=== PATIENT | male | born 1980 | race Caucasian/White ===

== ENCOUNTER 2018-07-26 15:25 | Inpatient (IN) | payer OTHER ==
[2018-07-26 15:48] VITALS: BMI 23.6
--- NOTE | 2018-07-26 21:32 | HP ---
COWS - Scale Resting Pulse: 0= [place] 80 or Below Sweatin= Chills/Flushing Restless Observation: 1= Difficult to Sit Still Pupil Size: 0= Normal to Room Light Bone or Joint Aches: 1= Mild Discomfort Runny Nose/ Eye Tearin= Nasal Congestion GI Upset > 30mins: 2= Nausea/Diarrhea Tremor Observation: 1= Tremor [place], Not Seen Yawning Observation: 1= 1-2x During Session Anxiety or Irritability: 2=Irritable/Anxious Goose Flesh Skin: 3=Piloerection COWS Score: 13 CIWA Score - CIWA Score Nausea/Vomitin Muscle Tremors: 1-None Visible, but [place] Anxiety: 2 Agitation: 3 Paroxysmal Sweats: 2 Orientation: 0-Oriented Tacttile Disturbances: 2-Mild Itch/Numbness/Burn (both hands) Auditory Disturbances: 1-Very Mild Visual Disturbances: 0-None Headache: 0-None Present CIWA-Ar Total Score: 14 Admission ROS BHS - HPI Chief Complaint: opioid and alcohol withdrawal symptoms Allergies/Adverse Reactions: Allergies Allergy/AdvReac Type Severity Reaction Status Date / Time No Known Allergies Allergy Verified 07/26/18 17:53 History of Present Illness: 38 yo male with hx of alcohol, IV heroin, alcohol, marijuana and cocaine dependence is here seeking detox. Last detox five months ago at [facility]. Denies suicidal / homicidal ideation or hx of suicide attempt. Denies any hx of seizures, blackouts or overdose. Longest period of sobriety 1.5 years. Exam Limitations: No Limitations - Ebola screening Have you traveled outside of the country in the last 21 days: No (N) Have you had contact with anyone from an Ebola affected area: No Have you been sick,other than usual withdrawal symptoms: No Do you have a fever: No - Review of Systems Constitutional: Chills, Changes in sleep, Unintentional Wgt. Loss EENT: reports: No Symptoms Reported Respiratory: reports: No Symptoms reported Cardiac: reports: No Symptoms Reported GI: reports: Nausea, Poor Fluid Intake, Abdominal cramping : reports: No Symptoms Reported Musculoskeletal: reports: Back Pain, Joint Pain Integumentary: reports: No Symptoms Reported Neuro: reports: No Symptoms reported Endocrine: reports: No Symptoms Reported Hematology: reports: No Symptoms Reported Psychiatric: reports: Orientated x3, Depressed Other Systems: Reviewed and Negative Patient History - Patient Medical History Hx Anemia: No Hx Asthma: No Hx Chronic Obstructive Pulmonary Disease (COPD): No Hx Cancer: No Hx Cardiac Disorders: No Hx Congestive Heart Failure: No Hx Hypertension: No Hx Hypercholesterolemia: No Hx Pacemaker: No HX Cerebrovascular Accident: No Hx Seizures: No Hx Dementia: No Hx Diabetes: No Hx Gastrointestinal Disorders: No Hx Liver Disease: No Hx Genitourinary Disorders: No Hx Sexually Transmitted Disorders: Yes (hx of syphillis ) Hx Renal Disease (ESRD): No Hx Thyroid Disease: No Hx Human Immunodeficiency Virus (HIV): No (last tested four months ago ) Hx Hepatitis C: No Hx Depression: Yes Hx Suicide Attempt: No Hx Schizophrenia: No - Patient Surgical History Past Surgical History: No Hx Neurologic Surgery: No Hx Cataract Extraction: No Hx Cardiac Surgery: No Hx Lung Surgery: No Hx Breast Surgery: No Hx Breast Biopsy: No Hx Abdominal Surgery: No Hx Appendectomy: No Hx Cholecystectomy: No Hx Genitourinary Surgery: No Hx Section: No Hx Orthopedic Surgery: No Anesthesia Reaction: No - PPD History Previous Implant?: Yes Documented Results: Negative w/o proof Implanted On Prior [facility] Admission?: No PPD to be Administered?: Yes - Smoking Cessation Smoking history: Current every day smoker Have you smoked in the past 12 months: Yes Aproximately how many cigarettes per day: 10 Hx Chewing Tobacco Use: No Initiated information on smoking cessation: Yes 'Breaking Loose' booklet given: 07/26/18 - Substance & Tx. History Hx Alcohol Use: Yes Hx Substance Use: Yes Substance Use Type: Alcohol, Cocaine, Heroin, Marijuana Hx Substance Use Treatment: Yes ([facility] five months ago ) - Substances Abused Alcohol Route: Oral Frequency: Daily Amount used: liqour- 1 pint, beer- 1 six pack Age of first use: 15 Date of Last Use: 07/25/18 Heroin Route: Injection Frequency: Daily Amount used: 15 bags Age of first use: 21 Date of Last Use: 07/25/18 Cocaine Route: Injection Frequency: Daily Amount used: $40 worth Age of first use: 21 Date of Last Use: 07/25/18 Marijuana/Hashish Route: Smoking Frequency: Daily Amount used: 1 blunt Age of first use: 12 Date of Last Use: 07/26/18 Family Disease History - Family Disease History Family Disease History: Other: Father (alive, cocaine dependence ) Admission Physical Exam [facility] - Vital Signs Vital Signs: Vital Signs - 24 hr 07/26/18 15:44 Temperature 96.7 F L Pulse Rate 61 Respiratory 18 Rate Blood Pressure 112/61 - Physical General Appearance: Yes: Disheveled, Irritable, Anxious HEENTM: Yes: EOMI, Hearing grossly Normal, Normal ENT Inspection, Normocephalic , Normal Voice, WHIT, Pharynx Normal, Tm's normal Respiratory: Yes: Chest Non-Tender, Lungs Clear, Normal Breath Sounds, No Respiratory Distress, No Accessory Muscle Use Neck: Yes: Within Normal Limits Breast: Yes: Breast Exam Deferred Cardiology: Yes: Regular Rhythm, Regular Rate Abdominal: Yes: Normal Bowel Sounds, Non Tender, Flat, Soft Genitourinary: Yes: Within Normal Limits Back: Yes: Normal Inspection Extremities: Yes: Normal Capillary Refill, Normal Inspection, Normal Range of Motion, Non-Tender Neurological: Yes: doctor of osteopathy II-XII NML intact, Fully Oriented, Alert, Motor Strength 5/5, Normal Response, Depressed Affect Integumentary: Yes: Track Aguila (bilateral forearms, no infection) Lymphatic: Yes: Within Normal Limits - Diagnostic (1) Alcohol dependence with withdrawal Current Visit: Yes Status: Acute Qualifiers: Complication of substance-induced condition: uncomplicated Qualified Code(s ): F10.230 - Alcohol dependence with withdrawal, uncomplicated (2) Opioid dependence with withdrawal Current Visit: Yes Status: Acute (3) Cocaine dependence Current Visit: Yes Status: Acute Qualifiers: Substance use status: uncomplicated Qualified Code(s): F14.20 - Cocaine dependence, uncomplicated (4) IV drug user Current Visit: Yes Status: Acute Cleared for Admission [facility] - Detox or Rehab [facility] Level of Care: Medically Managed Detox Regimen/Protocol: Methadone/Librium [facility] Breath Alcohol Content Breath Alcohol Content: 0 Urine Drug Screen - Results Drug Screen Negative: No Urine Drug Screen Results: THC-Marijuana, JUSTINE-Cocaine, OPI-Opiates, OXY- Oxycodone
[2018-07-26] MEDS ORDERED: MENTHOL/PHENOL 1 EACH UD MM PRN (21:38)
[2018-07-26] MEDS ORDERED: IBUPROFEN 400 MG TABLET (FP) PO PRN (21:38)
[2018-07-26] MEDS ORDERED: chlordiazePOXIDE HCL 25 MG CAPSULE PO PRN (21:38)
[2018-07-26] MEDS ORDERED: guaiFENesin/D-METHORPHAN HB 10 ML UNIT-DOSE CUPS PO PRN (21:38)
[2018-07-26] MEDS ORDERED: MAGNESIUM HYDROX 2400MG/30ML ORAL SUSPENSION 30 ML CUP PO PRN (21:38)
[2018-07-26] MEDS ORDERED: MAG HYDROX/AL HYDROX/SIMETH 30 ML UNIT-DOSE CUP PO PRN (21:38)
[2018-07-26] MEDS ORDERED: MAGNESIUM CITRATE 300 ML BOTTLE PO PRN (21:38)
[2018-07-26] MEDS ORDERED: ACETAMINOPHEN 325 MG TABLET (FP) PO PRN (21:38)
[2018-07-26] MEDS ORDERED: METHADONE HCL 10 MG TABLET (FOR DETOX USE ONLY) PO ONE ×2 (21:38→23:00)
[2018-07-26] MEDS ORDERED: P-EPHED 60MG/TRIPROLIDI 2.5MG TABLET PO PRN (21:38)
[2018-07-26] MEDS ORDERED: LOPERAMIDE HCL 2 MG CAPSULE PO PRN (21:38)
[2018-07-26] MEDS: chlordiazePOXIDE HCL 25 MG CAPSULE PO SCH (22:56)
[2018-07-26] MEDS: THIAMINE HCL 100 MG TABLET (FP) PO SCH (22:58)
[2018-07-27 02:00] LABS: URINE APPEARANCE CLEAR; URINE BILIRUBIN NEGATIVE (<2.0 mg/dL); URINE COLOR AMBER; URINE GLUCOSE (UA) NEGATIVE (NEGATIVE); URINE KETONE NEGATIVE (NEGATIVE); URINE LEUK ESTERASE NEGATIVE (NEGATIVE); URINE NITRITE NEGATIVE (NEGATIVE); URINE PROTEIN NEGATIVE (NEGATIVE)
[2018-07-27] MEDS: chlordiazePOXIDE HCL 25 MG CAPSULE PO SCH ×4 (06:22→22:25)
--- NOTE | 2018-07-27 09:49 | EKG ---
Test Reason : Blood Pressure : / mmHG Vent. Rate : 049 BPM Atrial Rate : 049 BPM P-R Int : 136 ms QRS Dur : 080 ms QT Int : 434 ms P-R-T Axes : -03 075 053 degrees QTc Int : 392 ms SINUS BRADYCARDIA SEPTAL INFARCT , AGE UNDETERMINED ABNORMAL ECG NO PREVIOUS ECGS AVAILABLE Confirmed by Akbar Green MD ([id number]) on 07/27/2018 9:49:15 AM Referred By: Confirmed By:Akbar Green MD
[2018-07-27] MEDS ORDERED: METHADONE HCL 10 MG TABLET (FOR DETOX USE ONLY) PO SCH (10:00)
--- NOTE | 2018-07-27 10:27 | PN ---
[facility] CIWA - CIWA Score Nausea/Vomitin Muscle Tremors: 3 Anxiety: 3 Agitation: 2 Paroxysmal Sweats: 1-Minimal Palms Moist Orientation: 0-Oriented Tacttile Disturbances: 1-Very Mild Itch/Numbness Auditory Disturbances: 1-Very Mild Visual Disturbances: 0-None Headache: 2-Mild CIWA-Ar Total Score: 16 BHS COWS - Scale Resting Pulse: 0= [place] 80 or Below Sweatin= Chills/Flushing Restless Observation: 3= Extraneous Movement Pupil Size: 1= Pupils >than Normal Bone or Joint Aches: 2= Severe Diffuse Aches Runny Nose/ Eye Tearin= Runny Nose/Eyes GI Upset > 30mins: 2= Nausea/Diarrhea Tremor Observation of Outstretched Hands: 2= Slight Tremor Visible Yawning Observation: 1= 1-2x During Session Anxiety or Irritability: 2=Irritable/Anxious Goose Flesh Skin: 0=Smooth Skin COWS Score: 16 [facility] Progress Note (SOAP) Subjective: alert,irritable,anxious,interrupted sleep,tremor,pain in the body and back Objective: 07/27/18 10:24 Vital Signs Temperature 97.9 F 07/27/18 09:13 Pulse Rate 54 L 07/27/18 09:13 Respiratory Rate 16 07/27/18 09:13 Blood Pressure 133/61 07/27/18 09:13 O2 Sat by Pulse Oximetry (%) ekg sinus bradycardia 49/min inverted t in avr qt/[id number]/392 no chest pain,no sob,no dizziness Laboratory Last Values Urine Color Janet 07/26/18 23:00 Urine Appearance Clear 07/26/18 23:00 Urine pH 5.0 (5.0-8.0) 07/26/18 23:00 Ur Specific [place] 1.030 (1.001-1.035) 07/26/18 23:00 Urine Protein Negative (NEGATIVE) 07/26/18 23:00 Urine Glucose (UA) Negative (NEGATIVE) 07/26/18 23:00 Urine Ketones Negative (NEGATIVE) 07/26/18 23:00 Urine Blood Negative (NEGATIVE) 07/26/18 23:00 Urine Nitrite Negative (NEGATIVE) 07/26/18 23:00 Urine Bilirubin Negative (<2.0 mg/dL) 07/26/18 23:00 Urine Urobilinogen 2.0 mg/dL (0.2-1.0) 07/26/18 23:00 Ur Leukocyte Esterase Negative (NEGATIVE) 07/26/18 23:00 labs pending Assessment: 07/27/18 10:26 withdrawal symptom Plan: continue detox
[2018-07-27 10:35] LABS: HEMATOCRIT 42.1 % (35.4-49); HEMOGLOBIN 13.8 GM/dL (11.7-16.9); MCH 29.9 pg (25.7-33.7); MCHC 32.8 g/dl (32.0-35.9); MEAN CELL VOLUME 91.2 fl (80-96); MEAN PLT VOLUME 8.3 fl (7.5-11.1); PLATELET COUNT 229 K/MM3 (134-434); RBC 4.61 M/mm3 (4.00-5.60); RDW 13.6 % (11.9-15.9); WHITE BLOOD COUNT 6.4 K/mm3 (4.0-10.0)
[2018-07-27] MEDS: NICOTINE 14 MG/24 HOURS TOPICAL PATCH TD SCH (10:55)
[2018-07-27 10:56] LABS: CHLORIDE 107 mmol/L (98-107); POTASSIUM 4.5 mmol/L (3.5-5.1); SODIUM 144 mmol/L (136-145)
[2018-07-27] MEDS: PRENATAL VITAMINS W/ FOLIC ACID TABLET (FP) PO SCH (10:56)
[2018-07-27 11:12] LABS: ALBUMIN 3.2 g/dl (3.4-5.0); ALK PHOS 66 U/L (45-117); ANION GAP 8 MMOL/L (8-16); BILIRUBIN,TOTAL 0.2 mg/dL (0.2-1.0); BLOOD UREA NITROGEN 20 mg/dL (7-18); CALCIUM 8.8 mg/dL (8.5-10.1); CO2 29 mmol/L (21-32); CREATININE 0.8 mg/dL (0.7-1.3); GLUCOSE,RANDOM 94 mg/dL (74-106); SGOT/AST 26 U/L (15-37); SGPT/ALT 32 U/L (12-78); TOT PROT 6.5 g/dl (6.4-8.2)
[2018-07-27] MEDS: cloNIDine HCL 0.1 MG TABLET PO SCH ×2 (14:25→22:26)
--- NOTE | 2018-07-27 18:05 | CONSULT ---
[facility] Psychiatric Consult - Data Date of interview: 07/27/18 Identifying data: Production Stage Manager approached patient for psychiatric consultation. Pt refused. Pt. stated to writer editor, " I don't want to speak to you. I just spoke to someone else."
[2018-07-27] MEDS: THIAMINE HCL 100 MG TABLET (FP) PO SCH (22:26)
[2018-07-27] MEDS: MELATONIN 5 MG TABLETS PO PRN (22:26)
[2018-07-28] MEDS: chlordiazePOXIDE HCL 25 MG CAPSULE PO SCH ×3 (06:30→17:53)
[2018-07-28] MEDS: METHADONE HCL 5 MG TABLET (FOR DETOX USE ONLY) PO SCH (10:17)
[2018-07-28] MEDS: NICOTINE 14 MG/24 HOURS TOPICAL PATCH TD SCH (10:17)
[2018-07-28] MEDS: PRENATAL VITAMINS W/ FOLIC ACID TABLET (FP) PO SCH (10:18)
[2018-07-28] MEDS: cloNIDine HCL 0.1 MG TABLET PO SCH ×2 (10:18→22:11)
--- NOTE | 2018-07-28 10:57 | PN ---
S CIWA - CIWA Score Nausea/Vomitin Muscle Tremors: 3 Anxiety: 3 Agitation: 2 Paroxysmal Sweats: 1-Minimal Palms Moist Orientation: 0-Oriented Tacttile Disturbances: 1-Very Mild Itch/Numbness Auditory Disturbances: 1-Very Mild Visual Disturbances: 0-None Headache: 2-Mild CIWA-Ar Total Score: 16 [facility] COWS - Scale Resting Pulse: 0= [place] 80 or Below Sweatin= Chills/Flushing Restless Observation: 3= Extraneous Movement Pupil Size: 1= Pupils >than Normal Bone or Joint Aches: 2= Severe Diffuse Aches Runny Nose/ Eye Tearin= Nasal Congestion GI Upset > 30mins: 2= Nausea/Diarrhea Tremor Observation of Outstretched Hands: 2= Slight Tremor Visible Yawning Observation: 1= 1-2x During Session Anxiety or Irritability: 2=Irritable/Anxious Goose Flesh Skin: 0=Smooth Skin COWS Score: 15 BHS Progress Note (SOAP) Subjective: alert,irritable,anxious,interrupted sleep,tremor,pain in the body and back Objective: 07/28/18 10:54 Vital Signs Temperature 98.1 F 07/28/18 09:05 Pulse Rate 64 07/28/18 09:05 Respiratory Rate 18 07/28/18 09:05 Blood Pressure 117/51 07/28/18 09:05 O2 Sat by Pulse Oximetry (%) 07/28/18 10:55 Laboratory Last Values WBC 6.4 K/mm3 (4.0-10.0) 07/27/18 07:00 RBC 4.61 M/mm3 (4.00-5.60) 07/27/18 07:00 Hgb 13.8 GM/dL (11.7-16.9) 07/27/18 07:00 Hct 42.1 % (35.4-49) 07/27/18 07:00 MCV 91.2 fl (80-96) 07/27/18 07:00 MCH 29.9 pg (25.7-33.7) 07/27/18 07:00 MCHC 32.8 g/dl (32.0-35.9) 07/27/18 07:00 RDW 13.6 % (11.9-15.9) 07/27/18 07:00 Plt Count 229 K/MM3 (134-434) 07/27/18 07:00 MPV 8.3 fl (7.5-11.1) 07/27/18 07:00 Sodium 144 mmol/L (136-145) 07/27/18 07:00 Potassium 4.5 mmol/L (3.5-5.1) 07/27/18 07:00 Chloride 107 mmol/L (98-107) 07/27/18 07:00 Carbon Dioxide 29 mmol/L (21-32) 07/27/18 07:00 Anion Gap 8 MMOL/L (8-16) 07/27/18 07:00 BUN 20 mg/dL (7-18) H 07/27/18 07:00 Creatinine 0.8 mg/dL (0.7-1.3) 07/27/18 07:00 Creat Clearance w eGFR > 60 (>60) 07/27/18 07:00 Random Glucose 94 mg/dL (74-106) 07/27/18 07:00 Calcium 8.8 mg/dL (8.5-10.1) 07/27/18 07:00 Total Bilirubin 0.2 mg/dL (0.2-1.0) 07/27/18 07:00 AST 26 U/L (15-37) 07/27/18 07:00 ALT 32 U/L (12-78) 07/27/18 07:00 Alkaline Phosphatase 66 U/L (45-117) 07/27/18 07:00 Total Protein 6.5 g/dl (6.4-8.2) 07/27/18 07:00 Albumin 3.2 g/dl (3.4-5.0) L 07/27/18 07:00 Urine Color Janet 07/26/18 23:00 Urine Appearance Clear 07/26/18 23:00 Urine pH 5.0 (5.0-8.0) 07/26/18 23:00 Ur Specific [place] 1.030 (1.001-1.035) 07/26/18 23:00 Urine Protein Negative (NEGATIVE) 07/26/18 23:00 Urine Glucose (UA) Negative (NEGATIVE) 07/26/18 23:00 Urine Ketones Negative (NEGATIVE) 07/26/18 23:00 Urine Blood Negative (NEGATIVE) 07/26/18 23:00 Urine Nitrite Negative (NEGATIVE) 07/26/18 23:00 Urine Bilirubin Negative (<2.0 mg/dL) 07/26/18 23:00 Urine Urobilinogen 2.0 mg/dL (0.2-1.0) 07/26/18 23:00 Ur Leukocyte Esterase Negative (NEGATIVE) 07/26/18 23:00 HIV 1&2 Antibody Screen Negative 07/27/18 07:00 HIV P24 Antigen Negative 07/27/18 07:00 Assessment: 07/28/18 10:56 withdrawal symptom Plan: continue detox,encourage oral fluid
[2018-07-28] MEDS: chlordiazePOXIDE 5 MG CAPSULE PO SCH (22:11)
[2018-07-28] MEDS: CYCLOBENZAPRINE HCL 10 MG TABLET (FP) PO PRN (22:11)
[2018-07-28] MEDS: THIAMINE HCL 100 MG TABLET (FP) PO SCH (22:11)
[2018-07-29] MEDS: chlordiazePOXIDE 5 MG CAPSULE PO SCH ×3 (06:14→17:43)
[2018-07-29] MEDS: METHADONE HCL 5 MG TABLET (FOR DETOX USE ONLY) PO SCH (11:31)
[2018-07-29] MEDS: PRENATAL VITAMINS W/ FOLIC ACID TABLET (FP) PO SCH (11:31)
[2018-07-29] MEDS: cloNIDine HCL 0.1 MG TABLET PO SCH ×2 (11:32→23:00)
[2018-07-29] MEDS: NICOTINE POLACRILEX 2 MG GUM BC PRN ×2 (11:33→17:46)
[2018-07-29] MEDS: NICOTINE 14 MG/24 HOURS TOPICAL PATCH TD SCH (11:33)
--- NOTE | 2018-07-29 14:01 | PN ---
BHS Progress Note (SOAP) Subjective: alert,irritable,anxious,interrupted sleep,pain in the body Objective: 07/29/18 14:00 Vital Signs Temperature 97.3 F L 07/29/18 13:23 Pulse Rate 58 L 07/29/18 13:23 Respiratory Rate 18 07/29/18 13:23 Blood Pressure 110/58 07/29/18 13:23 O2 Sat by Pulse Oximetry (%) Assessment: 07/29/18 14:00 withdrawal symptom Plan: continue detox
[2018-07-29] MEDS: chlordiazePOXIDE HCL 10 MG CAPSULE PO SCH (23:00)
[2018-07-29] MEDS: THIAMINE HCL 100 MG TABLET (FP) PO SCH (23:00)
[2018-07-29] MEDS: MELATONIN 5 MG TABLETS PO PRN (23:01)
[2018-07-30] MEDS: chlordiazePOXIDE HCL 10 MG CAPSULE PO SCH ×3 (05:58→17:32)
[2018-07-30] MEDS ORDERED: METHADONE HCL 10 MG TABLET (FOR DETOX USE ONLY) PO SCH (10:00)
[2018-07-30] MEDS: NICOTINE 14 MG/24 HOURS TOPICAL PATCH TD SCH (10:42)
[2018-07-30] MEDS: cloNIDine HCL 0.1 MG TABLET PO SCH ×2 (10:42→22:04)
[2018-07-30] MEDS: PRENATAL VITAMINS W/ FOLIC ACID TABLET (FP) PO SCH (10:42)
--- NOTE | 2018-07-30 12:30 | PN ---
S Progress Note (SOAP) Subjective: alert,irritable,anxious,interrupted sleep Objective: 07/30/18 12:29 Vital Signs Temperature 97.5 F L 07/30/18 11:27 Pulse Rate 65 07/30/18 11:27 Respiratory Rate 18 07/30/18 11:27 Blood Pressure 130/61 07/30/18 11:27 O2 Sat by Pulse Oximetry (%) Assessment: 07/30/18 12:29 withdrawal symptom Plan: continue detox,discharge in am
[2018-07-30] MEDS: NICOTINE POLACRILEX 2 MG GUM BC PRN ×2 (17:34→22:06)
[2018-07-30] MEDS: THIAMINE HCL 100 MG TABLET (FP) PO SCH (22:04)
[2018-07-30] MEDS: MELATONIN 5 MG TABLETS PO PRN (22:05)
[2018-07-31] MEDS ORDERED: METHADONE HCL 5 MG TABLET (FOR DETOX USE ONLY) PO SCH (06:00)
[2018-07-31] MEDS: CYCLOBENZAPRINE HCL 10 MG TABLET (FP) PO PRN (07:11)
[2018-07-31 09:21] VITALS: BP 122/61; PULSE 63; TEMP 98.1
--- NOTE | 2018-07-31 10:24 | DS ---
[facility] Detox Discharge Summary Admission Date: 07/26/18 Discharge Date: 07/31/18 - History Present History: Alcohol Dependence, Opioid Dependence Additional Comments: 38 years old male admitted on 07/26/18 for opiate and alcohol withdrawal sx completed alcohol and opiate detox regimen tolerated well denies opiate and alcohol withdrawal sx alert oriented x 3 [facility] Physical Exam Results Vital Signs: Vital Signs Temperature 98.1 F 07/31/18 09:20 Pulse Rate 63 07/31/18 09:20 Respiratory Rate 18 07/31/18 09:20 Blood Pressure 122/61 07/31/18 09:20 O2 Sat by Pulse Oximetry (%) Pertinent Admission Physical Exam Findings: alcohol withdrawal sx Vital Signs Temperature 98.1 F 07/31/18 09:20 Pulse Rate 63 07/31/18 09:20 Respiratory Rate 18 07/31/18 09:20 Blood Pressure 122/61 07/31/18 09:20 O2 Sat by Pulse Oximetry (%) Laboratory Last Values WBC 6.4 K/mm3 (4.0-10.0) 07/27/18 07:00 RBC 4.61 M/mm3 (4.00-5.60) 07/27/18 07:00 Hgb 13.8 GM/dL (11.7-16.9) 07/27/18 07:00 Hct 42.1 % (35.4-49) 07/27/18 07:00 MCV 91.2 fl (80-96) 07/27/18 07:00 MCH 29.9 pg (25.7-33.7) 07/27/18 07:00 MCHC 32.8 g/dl (32.0-35.9) 07/27/18 07:00 RDW 13.6 % (11.9-15.9) 07/27/18 07:00 Plt Count 229 K/MM3 (134-434) 07/27/18 07:00 MPV 8.3 fl (7.5-11.1) 07/27/18 07:00 Sodium 144 mmol/L (136-145) 07/27/18 07:00 Potassium 4.5 mmol/L (3.5-5.1) 07/27/18 07:00 Chloride 107 mmol/L (98-107) 07/27/18 07:00 Carbon Dioxide 29 mmol/L (21-32) 07/27/18 07:00 Anion Gap 8 MMOL/L (8-16) 07/27/18 07:00 BUN 20 mg/dL (7-18) H 07/27/18 07:00 Creatinine 0.8 mg/dL (0.7-1.3) 07/27/18 07:00 Creat Clearance w eGFR > 60 (>60) 07/27/18 07:00 Random Glucose 94 mg/dL (74-106) 07/27/18 07:00 Calcium 8.8 mg/dL (8.5-10.1) 07/27/18 07:00 Total Bilirubin 0.2 mg/dL (0.2-1.0) 07/27/18 07:00 AST 26 U/L (15-37) 07/27/18 07:00 ALT 32 U/L (12-78) 07/27/18 07:00 Alkaline Phosphatase 66 U/L (45-117) 07/27/18 07:00 Total Protein 6.5 g/dl (6.4-8.2) 07/27/18 07:00 Albumin 3.2 g/dl (3.4-5.0) L 07/27/18 07:00 Urine Color Janet 07/26/18 23:00 Urine Appearance Clear 07/26/18 23:00 Urine pH 5.0 (5.0-8.0) 07/26/18 23:00 Ur Specific [place] 1.030 (1.001-1.035) 07/26/18 23:00 Urine Protein Negative (NEGATIVE) 07/26/18 23:00 Urine Glucose (UA) Negative (NEGATIVE) 07/26/18 23:00 Urine Ketones Negative (NEGATIVE) 07/26/18 23:00 Urine Blood Negative (NEGATIVE) 07/26/18 23:00 Urine Nitrite Negative (NEGATIVE) 07/26/18 23:00 Urine Bilirubin Negative (<2.0 mg/dL) 07/26/18 23:00 Urine Urobilinogen 2.0 mg/dL (0.2-1.0) 07/26/18 23:00 Ur Leukocyte Esterase Negative (NEGATIVE) 07/26/18 23:00 RPR Titer Nonreactive (NONREACTIVE) 07/27/18 07:00 HIV 1&2 Antibody Screen Negative 07/27/18 07:00 HIV P24 Antigen Negative 07/27/18 07:00 lab noted informed alcohol and opiate related renal complications - Treatment Hospital Course: Detox Protocol Followed, Detoxed Safely, Responded well, Discharged Condition Good, Rehab Referral Accepted Patient has Accepted a Rehab Referral to: [facility] - Medication Discharge Medications: Ambulatory Orders NK [No Known Home Medication] 07/26/18 - Diagnosis (1) Alcohol dependence with withdrawal Status: Acute Qualifiers: Complication of substance-induced condition: uncomplicated Qualified Code(s ): F10.230 - Alcohol dependence with withdrawal, uncomplicated (2) Opioid dependence with withdrawal Status: Acute - AMA Did Patient Leave Against Medical Advice: No
== END 2018-07-31 09:26 | disposition home or self-care (01) | DRG 773 ==
LOC: YASAS 15:25 → Y6N 18:19
PROVIDERS: ADMIT Surgery; ATTEND Surgery
PROC: HZ2ZZZZ Detoxification Services for Substance Abuse Treatment (ICD-10-PCS; principal; 2018-07-26)
DX: F11.23 Opioid dependence with withdrawal (principal); F10.230 Alcohol dependence with withdrawal, uncomplicated; F14.20 Cocaine dependence, uncomplicated; F32.9 Major depressive disorder, single episode, unspecified; Z86.19 Personal history of other infectious and parasitic diseases; Z59.0 Homelessness
CPT/HCPCS: 36415; 80053; 81003; 85027; 86593; 87389; 93005; 93010; J0735

== ENCOUNTER 2018-09-03 17:39 | Inpatient (IN) | payer OTHER ==
[2018-09-03 18:05] VITALS: BMI 23.6
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
[2018-09-03] MEDS ORDERED: METHADONE HCL 10 MG TABLET (FOR DETOX USE ONLY) PO ONE ×2 (22:02→23:00)
[2018-09-03] MEDS ORDERED: NICOTINE POLACRILEX 2 MG GUM BC PRN (22:02)
[2018-09-03] MEDS ORDERED: IBUPROFEN 400 MG TABLET (FP) PO PRN (22:02)
[2018-09-03] MEDS ORDERED: MENTHOL/PHENOL 1 EACH UD MM PRN (22:02)
[2018-09-03] MEDS ORDERED: ACETAMINOPHEN 325 MG TABLET (FP) PO PRN (22:02)
[2018-09-03] MEDS ORDERED: MAGNESIUM CITRATE 300 ML BOTTLE PO PRN (22:02)
[2018-09-03] MEDS ORDERED: chlordiazePOXIDE HCL 25 MG CAPSULE PO PRN (22:02)
[2018-09-03] MEDS ORDERED: guaiFENesin/D-METHORPHAN HB 10 ML UNIT-DOSE CUPS PO PRN (22:02)
[2018-09-03] MEDS ORDERED: MAGNESIUM HYDROX 2400MG/30ML ORAL SUSPENSION 30 ML CUP PO PRN (22:02)
[2018-09-03] MEDS ORDERED: MAG HYDROX/AL HYDROX/SIMETH 30 ML UNIT-DOSE CUP PO PRN (22:02)
[2018-09-03] MEDS ORDERED: LOPERAMIDE HCL 2 MG CAPSULE PO PRN (22:02)
[2018-09-03] MEDS ORDERED: P-EPHED 60MG/TRIPROLIDI 2.5MG TABLET PO PRN (22:02)
[2018-09-03] MEDS: chlordiazePOXIDE HCL 25 MG CAPSULE PO SCH (22:54)
[2018-09-04] MEDS: chlordiazePOXIDE HCL 25 MG CAPSULE PO SCH ×4 (06:07→23:25)
[2018-09-04] MEDS ORDERED: METHADONE HCL 10 MG TABLET (FOR DETOX USE ONLY) PO SCH (10:00)
[2018-09-04 10:15] LABS: HEMATOCRIT 40.8 % (35.4-49); HEMOGLOBIN 13.4 GM/dL (11.7-16.9); MCH 29.8 pg (25.7-33.7); MCHC 32.7 g/dl (32.0-35.9); MEAN CELL VOLUME 90.9 fl (80-96); MEAN PLT VOLUME 8.6 fl (7.5-11.1); PLATELET COUNT 251 K/MM3 (134-434); RBC 4.49 M/mm3 (4.00-5.60); RDW 13.4 % (11.9-15.9); WHITE BLOOD COUNT 12.8 K/mm3 (4.0-10.0)
[2018-09-04] MEDS: NICOTINE 14 MG/24 HOURS TOPICAL PATCH TD SCH (10:35)
[2018-09-04] MEDS: PRENATAL VITAMINS W/ FOLIC ACID TABLET (FP) PO SCH (10:36)
[2018-09-04 11:08] LABS: ALBUMIN 3.4 g/dl (3.4-5.0); ALK PHOS 57 U/L (45-117); ANION GAP 9 MMOL/L (8-16); BILIRUBIN,TOTAL 0.5 mg/dL (0.2-1); BLOOD UREA NITROGEN 16 mg/dL (7-18); CALCIUM 8.7 mg/dL (8.5-10.1); CHLORIDE 103 mmol/L (98-107); CO2 25 mmol/L (21-32); CREATININE 0.7 mg/dL (0.55-1.3); GLUCOSE,RANDOM 81 mg/dL (74-106); POTASSIUM 3.8 mmol/L (3.5-5.1); SGOT/AST 23 U/L (15-37); SGPT/ALT 24 U/L (13-61); SODIUM 137 mmol/L (136-145); TOT PROT 7.1 g/dl (6.4-8.2)
--- NOTE | 2018-09-04 11:38 | PN ---
[facility] CIWA - CIWA Score Nausea/Vomitin-No Nausea/No Vomiting Muscle Tremors: 3 Anxiety: 3 Agitation: 1-Slight > Activity Paroxysmal Sweats: No Perspiration Orientation: 1-Uncertain about Date Tacttile Disturbances: 0-None Auditory Disturbances: 0-None Visual Disturbances: 0-None Headache: 2-Mild CIWA-Ar Total Score: 10 BHS COWS - Scale Resting Pulse: 0= [place] 80 or Below Sweatin= No chills or Flushing Restless Observation: 1= Difficult to Sit Still Pupil Size: 2= Moderately Dilated Bone or Joint Aches: 2= Severe Diffuse Aches Runny Nose/ Eye Tearin= None GI Upset > 30mins: 0= None Tremor Observation of Outstretched Hands: 2= Slight Tremor Visible Yawning Observation: 1= 1-2x During Session Anxiety or Irritability: 2=Irritable/Anxious Goose Flesh Skin: 0=Smooth Skin COWS Score: 10 BHS Progress Note (SOAP) Subjective: PATIENT C/O ANXIETY, SHAKES, BODY ACHES, HEADACHE Objective: 09/04/18 11:37 Laboratory Tests 09/04/18 09/04/18 09/04/18 08:00 08:00 08:00 WBC 12.8 H RBC 4.49 Hgb 13.4 Hct 40.8 MCV 90.9 MCH 29.8 MCHC 32.7 RDW 13.4 Plt Count 251 MPV 8.6 Sodium 137 Potassium 3.8 Chloride 103 Carbon Dioxide 25 Anion Gap 9 BUN 16 Creatinine 0.7 Creat Clearance w eGFR > 60 Random Glucose 81 Calcium 8.7 Total Bilirubin 0.5 AST 23 ALT 24 Alkaline Phosphatase 57 Total Protein 7.1 Albumin 3.4 RPR Titer Nonreactive Vital Signs Temperature 98.5 F 09/04/18 10:32 Pulse Rate 58 L 09/04/18 10:32 Respiratory Rate 16 09/04/18 10:32 Blood Pressure 131/72 09/04/18 10:32 O2 Sat by Pulse Oximetry (%) ALERT AND ORIENTED SKIN WARM AND DRY AMB AD [place] EXT + TREMORS, FULL ROM NEURO PUPILS MODERATELY DILATED, + EOMS INTACT BL 09/04/18 11:43 Assessment: 09/04/18 11:44 WITHDRAWAL SYNDROME Plan: CONTINUE DETOX ORAL FLUIDS ENCOURAGED CONTINUE TO MONITOR CLINICALLY
[2018-09-04 11:39] LABS: URINE APPEARANCE TURBID; URINE BILIRUBIN NEGATIVE (<2.0 mg/dL); URINE COLOR YELLOW; URINE GLUCOSE (UA) NEGATIVE (NEGATIVE); URINE KETONE NEGATIVE (NEGATIVE); URINE LEUK ESTERASE NEGATIVE (NEGATIVE); URINE NITRITE NEGATIVE (NEGATIVE); URINE PROTEIN NEGATIVE (NEGATIVE); URINE UROBILINOGEN NEGATIVE mg/dL (0.2-1.0)
--- NOTE | 2018-09-04 17:07 | CONSULT ---
[facility] Psychiatric Consult - Data Date of interview: 09/04/18 Admission source: [facility] Identifying data: Readmission to [facility] for this 38 y/o male seeking detoxification treatment on for alcohol,cannabis,cocaine and opioid dependence.Patient is single,a father of two,homeless,unemployed and supported by relatives. Substance Abuse History: Discussed with the patient in this interview.Mr Louis admits to continuous use of alcohol,heroin,marihuana and cocaine.For years. Details in current [facility] report : Smoking history: Current every day smoker. Have you smoked in the past 12 months: Yes. Aproximately how many cigarettes per day: 10. Cigars Per Day: 0. Hx Chewing Tobacco Use: No. Initiated information on smoking cessation: Yes. 'Breaking Loose' booklet given : 09/03/18. - Substance & Tx. History. Hx Alcohol Use: Yes. Hx Substance Use : Yes. Substance Use Type: Alcohol, Cocaine, Heroin, Marijuana. Hx Substance Use Treatment: Yes ([facility]). - Substances Abused. Alcohol. Route: Oral. Frequency: Daily. Amount used: 1/2 [place] - 3 BEERS. Age of first use: 12. Date of Last Use: 09/03/18. Heroin. Route: Injection. Frequency: Daily. Amount used: 10-15 BAGS. Age of first use: 29. Date of Last Use: 09/03 Medical History: Patient endorses good general health. Psychiatric History: Patient reports a distant history of one psychiatric hospitalization (at age 14). Circumstances : suicide attempt via hanging while incarcerated. Reason (s) of incarceration not disclosed by the patient in this interview. Mr Louis never followed with OPD care. Not on psychotropic medications. Physical/Sexual Abuse/Trauma History: Patient denies. Additional Comment: Urine Drug Screen Results: THC-Marijuana, JUSTINE-Cocaine, OPI- Opiates, BZO-Benzodiazepines, FEN-Fentanyl. Noted. Mental Status Exam - Mental Status Exam Alert and Oriented to: Time, Place, Person Cognitive Function: Good Patient Appearance: Well Groomed Mood: Nervous, Withdrawn Affect: Normal Range Patient Behavior: Fatigued, Cooperative Speech Pattern: Clear, Appropriate Voice Loudness: Normal Thought Process: Goal Oriented Thought Disorder: Not Present Hallucinations: Denies Suicidal Ideation: Denies Homicidal Ideation: Denies Insight/Judgement: Poor Sleep: Well Appetite: Good Muscle strength/Tone: Normal Gait/Station: Other (not observed ; in bed for entire interview) Psychiatric Findings - Problem List ([place] 1, 2,3) (1) Opioid dependence with withdrawal Current Visit: Yes Status: Acute (2) Alcohol dependence with withdrawal Current Visit: Yes Status: Acute Qualifiers: Complication of substance-induced condition: uncomplicated Qualified Code(s ): F10.230 - Alcohol dependence with withdrawal, uncomplicated (3) Cocaine dependence Current Visit: Yes Status: Acute Qualifiers: Substance use status: uncomplicated Qualified Code(s): F14.20 - Cocaine dependence, uncomplicated (4) Cannabis dependence Current Visit: Yes Status: Acute (5) Nicotine dependence Current Visit: Yes Status: Chronic Qualifiers: Nicotine product type: cigarettes Substance use status: uncomplicated Qualified Code(s): F17.210 - Nicotine dependence, cigarettes, uncomplicated (6) Substance induced mood disorder Current Visit: Yes Status: Acute - Initial Treatment Plan Initial Treatment Plan: Psychoeducation.Sleep hygiene recommended.Detoxification in progress.Group + supportive therapy.AA meetings.Observation.
--- NOTE | 2018-09-04 17:27 | EKG ---
Test Reason : Blood Pressure : / mmHG Vent. Rate : 058 BPM Atrial Rate : 058 BPM P-R Int : 120 ms QRS Dur : 080 ms QT Int : 418 ms P-R-T Axes : 078 072 050 degrees QTc Int : 410 ms SINUS BRADYCARDIA RIGHT ATRIAL ENLARGEMENT BORDERLINE ECG WHEN COMPARED WITH ECG OF 26-JUL-2018 21:59, CRITERIA FOR SEPTAL INFARCT ARE NO LONGER PRESENT PROBABLY PRIOR EKG HAS AN ERROR IN LEAD POSITIONING Confirmed by LAURA LAM, ZANDER ([id number]) on 09/04/2018 5:26:43 PM Referred By: Confirmed By:ZANDER SANCHEZ MD
[2018-09-04] MEDS: THIAMINE HCL 100 MG TABLET (FP) PO SCH (23:25)
[2018-09-05] MEDS: chlordiazePOXIDE HCL 25 MG CAPSULE PO SCH ×3 (05:56→17:56)
[2018-09-05] MEDS: NICOTINE 14 MG/24 HOURS TOPICAL PATCH TD SCH (10:17)
[2018-09-05] MEDS: PRENATAL VITAMINS W/ FOLIC ACID TABLET (FP) PO SCH (10:18)
[2018-09-05] MEDS: METHADONE HCL 5 MG TABLET (FOR DETOX USE ONLY) PO SCH (10:18)
--- NOTE | 2018-09-05 12:37 | PN ---
[facility] CIWA - CIWA Score Nausea/Vomitin-No Nausea/No Vomiting Muscle Tremors: 3 Anxiety: 2 Agitation: 1-Slight > Activity Paroxysmal Sweats: 1-Minimal Palms Moist Orientation: 0-Oriented Tacttile Disturbances: 1-Very Mild Itch/Numbness Auditory Disturbances: 0-None Visual Disturbances: 0-None Headache: 1-Very Mild CIWA-Ar Total Score: 9 BHS COWS - Scale Resting Pulse: 0= [place] 80 or Below Sweatin= Streaming Sweat Restless Observation: 0= Sits Still Pupil Size: 0= Normal to Room Light Bone or Joint Aches: 1= Mild Discomfort Runny Nose/ Eye Tearin= Nasal Congestion GI Upset > 30mins: 1= Stomach Cramp Tremor Observation of Outstretched Hands: 1= Tremor [employer], Not Seen Yawning Observation: 1= 1-2x During Session Anxiety or Irritability: 1=Feels Anxious/Irritable Goose Flesh Skin: 0=Smooth Skin COWS Score: 10 S Progress Note (SOAP) Subjective: sweat body ache tremor anxiety trouble sleep at night Objective: 09/05/18 12:36 Vital Signs Temperature 98.1 F 09/05/18 10:28 Pulse Rate 57 L 09/05/18 10:28 Respiratory Rate 16 09/05/18 10:28 Blood Pressure 130/69 09/05/18 10:28 O2 Sat by Pulse Oximetry (%) Laboratory Last Values WBC 12.8 K/mm3 (4.0-10.0) H 09/04/18 08:00 RBC 4.49 M/mm3 (4.00-5.60) 09/04/18 08:00 Hgb 13.4 GM/dL (11.7-16.9) 09/04/18 08:00 Hct 40.8 % (35.4-49) 09/04/18 08:00 MCV 90.9 fl (80-96) 09/04/18 08:00 MCH 29.8 pg (25.7-33.7) 09/04/18 08:00 MCHC 32.7 g/dl (32.0-35.9) 09/04/18 08:00 RDW 13.4 % (11.9-15.9) 09/04/18 08:00 Plt Count 251 K/MM3 (134-434) 09/04/18 08:00 MPV 8.6 fl (7.5-11.1) 09/04/18 08:00 Sodium 137 mmol/L (136-145) 09/04/18 08:00 Potassium 3.8 mmol/L (3.5-5.1) 09/04/18 08:00 Chloride 103 mmol/L (98-107) 09/04/18 08:00 Carbon Dioxide 25 mmol/L (21-32) 09/04/18 08:00 Anion Gap 9 MMOL/L (8-16) 09/04/18 08:00 BUN 16 mg/dL (7-18) 09/04/18 08:00 Creatinine 0.7 mg/dL (0.55-1.3) 09/04/18 08:00 Creat Clearance w eGFR > 60 (>60) 09/04/18 08:00 Random Glucose 81 mg/dL (74-106) 09/04/18 08:00 Calcium 8.7 mg/dL (8.5-10.1) 09/04/18 08:00 Total Bilirubin 0.5 mg/dL (0.2-1) 09/04/18 08:00 AST 23 U/L (15-37) 09/04/18 08:00 ALT 24 U/L (13-61) 09/04/18 08:00 Alkaline Phosphatase 57 U/L (45-117) 09/04/18 08:00 Total Protein 7.1 g/dl (6.4-8.2) 09/04/18 08:00 Albumin 3.4 g/dl (3.4-5.0) 09/04/18 08:00 Urine Color Yellow 09/03/18 10:00 Urine Appearance Turbid 09/03/18 10:00 Urine pH 5.0 (5.0-8.0) 09/03/18 10:00 Ur Specific [place] 1.031 (1.010-1.035) 09/03/18 10:00 Urine Protein Negative (NEGATIVE) 09/03/18 10:00 Urine Glucose (UA) Negative (NEGATIVE) 09/03/18 10:00 Urine Ketones Negative (NEGATIVE) 09/03/18 10:00 Urine Blood Negative (NEGATIVE) 09/03/18 10:00 Urine Nitrite Negative (NEGATIVE) 09/03/18 10:00 Urine Bilirubin Negative (<2.0 mg/dL) 09/03/18 10:00 Urine Urobilinogen Negative mg/dL (0.2-1.0) 09/03/18 10:00 Ur Leukocyte Esterase Negative (NEGATIVE) 09/03/18 10:00 RPR Titer Nonreactive (NONREACTIVE) 09/04/18 08:00 lab noted Assessment: 09/05/18 12:36 withdrawal sx Plan: continue detox
[2018-09-05] MEDS: THIAMINE HCL 100 MG TABLET (FP) PO SCH (23:03)
[2018-09-05] MEDS: chlordiazePOXIDE 5 MG CAPSULE PO SCH (23:03)
[2018-09-05] MEDS: MELATONIN 5 MG TABLETS PO PRN (23:04)
[2018-09-06] MEDS: chlordiazePOXIDE 5 MG CAPSULE PO SCH ×3 (06:23→17:57)
[2018-09-06] MEDS: PRENATAL VITAMINS W/ FOLIC ACID TABLET (FP) PO SCH (10:55)
[2018-09-06] MEDS: METHADONE HCL 5 MG TABLET (FOR DETOX USE ONLY) PO SCH (10:56)
[2018-09-06] MEDS: NICOTINE 14 MG/24 HOURS TOPICAL PATCH TD SCH (10:56)
--- NOTE | 2018-09-06 15:26 | PN ---
BHS Progress Note (SOAP) Subjective: body ache tremor anxiety muscle ache sweat Objective: 09/06/18 15:24 Vital Signs Temperature 96.6 F L 09/06/18 13:05 Pulse Rate 66 09/06/18 13:05 Respiratory Rate 20 09/06/18 13:05 Blood Pressure 145/75 09/06/18 13:05 O2 Sat by Pulse Oximetry (%) Laboratory Last Values WBC 12.8 K/mm3 (4.0-10.0) H 09/04/18 08:00 RBC 4.49 M/mm3 (4.00-5.60) 09/04/18 08:00 Hgb 13.4 GM/dL (11.7-16.9) 09/04/18 08:00 Hct 40.8 % (35.4-49) 09/04/18 08:00 MCV 90.9 fl (80-96) 09/04/18 08:00 MCH 29.8 pg (25.7-33.7) 09/04/18 08:00 MCHC 32.7 g/dl (32.0-35.9) 09/04/18 08:00 RDW 13.4 % (11.9-15.9) 09/04/18 08:00 Plt Count 251 K/MM3 (134-434) 09/04/18 08:00 MPV 8.6 fl (7.5-11.1) 09/04/18 08:00 Sodium 137 mmol/L (136-145) 09/04/18 08:00 Potassium 3.8 mmol/L (3.5-5.1) 09/04/18 08:00 Chloride 103 mmol/L (98-107) 09/04/18 08:00 Carbon Dioxide 25 mmol/L (21-32) 09/04/18 08:00 Anion Gap 9 MMOL/L (8-16) 09/04/18 08:00 BUN 16 mg/dL (7-18) 09/04/18 08:00 Creatinine 0.7 mg/dL (0.55-1.3) 09/04/18 08:00 Creat Clearance w eGFR > 60 (>60) 09/04/18 08:00 Random Glucose 81 mg/dL (74-106) 09/04/18 08:00 Calcium 8.7 mg/dL (8.5-10.1) 09/04/18 08:00 Total Bilirubin 0.5 mg/dL (0.2-1) 09/04/18 08:00 AST 23 U/L (15-37) 09/04/18 08:00 ALT 24 U/L (13-61) 09/04/18 08:00 Alkaline Phosphatase 57 U/L (45-117) 09/04/18 08:00 Total Protein 7.1 g/dl (6.4-8.2) 09/04/18 08:00 Albumin 3.4 g/dl (3.4-5.0) 09/04/18 08:00 Urine Color Yellow 09/03/18 10:00 Urine Appearance Turbid 09/03/18 10:00 Urine pH 5.0 (5.0-8.0) 09/03/18 10:00 Ur Specific [place] 1.031 (1.010-1.035) 09/03/18 10:00 Urine Protein Negative (NEGATIVE) 09/03/18 10:00 Urine Glucose (UA) Negative (NEGATIVE) 09/03/18 10:00 Urine Ketones Negative (NEGATIVE) 09/03/18 10:00 Urine Blood Negative (NEGATIVE) 09/03/18 10:00 Urine Nitrite Negative (NEGATIVE) 09/03/18 10:00 Urine Bilirubin Negative (<2.0 mg/dL) 09/03/18 10:00 Urine Urobilinogen Negative mg/dL (0.2-1.0) 09/03/18 10:00 Ur Leukocyte Esterase Negative (NEGATIVE) 09/03/18 10:00 RPR Titer Nonreactive (NONREACTIVE) 09/04/18 08:00 lab noted Assessment: 09/06/18 15:24 withdrawal sx Plan: continue detox
[2018-09-06] MEDS ORDERED: BACLOFEN 10 MG TABLET (FP) PO ONE (15:45)
[2018-09-06] MEDS: THIAMINE HCL 100 MG TABLET (FP) PO SCH (22:41)
[2018-09-06] MEDS: chlordiazePOXIDE HCL 10 MG CAPSULE PO SCH (22:42)
[2018-09-07] MEDS: chlordiazePOXIDE HCL 10 MG CAPSULE PO SCH ×3 (06:21→18:07)
[2018-09-07] MEDS ORDERED: METHADONE HCL 10 MG TABLET (FOR DETOX USE ONLY) PO SCH (10:00)
[2018-09-07] MEDS: PRENATAL VITAMINS W/ FOLIC ACID TABLET (FP) PO SCH (10:04)
[2018-09-07] MEDS: NICOTINE 14 MG/24 HOURS TOPICAL PATCH TD SCH (10:04)
--- NOTE | 2018-09-07 12:32 | PN ---
BHS Progress Note (SOAP) Subjective: feeling better no tremor less sweat no body ache Objective: 09/07/18 12:30 Vital Signs Temperature 98.4 F 09/07/18 09:39 Pulse Rate 66 10 09:39 Respiratory Rate 18 09/07/18 09:39 Blood Pressure 119/59 L 09/07/18 09:39 O2 Sat by Pulse Oximetry (%) Laboratory Last Values WBC 12.8 K/mm3 (4.0-10.0) H 09/04/18 08:00 RBC 4.49 M/mm3 (4.00-5.60) 09/04/18 08:00 Hgb 13.4 GM/dL (11.7-16.9) 09/04/18 08:00 Hct 40.8 % (35.4-49) 09/04/18 08:00 MCV 90.9 fl (80-96) 09/04/18 08:00 MCH 29.8 pg (25.7-33.7) 09/04/18 08:00 MCHC 32.7 g/dl (32.0-35.9) 09/04/18 08:00 RDW 13.4 % (11.9-15.9) 09/04/18 08:00 Plt Count 251 K/MM3 (134-434) 09/04/18 08:00 MPV 8.6 fl (7.5-11.1) 09/04/18 08:00 Sodium 137 mmol/L (136-145) 09/04/18 08:00 Potassium 3.8 mmol/L (3.5-5.1) 09/04/18 08:00 Chloride 103 mmol/L (98-107) 09/04/18 08:00 Carbon Dioxide 25 mmol/L (21-32) 09/04/18 08:00 Anion Gap 9 MMOL/L (8-16) 09/04/18 08:00 BUN 16 mg/dL (7-18) 09/04/18 08:00 Creatinine 0.7 mg/dL (0.55-1.3) 09/04/18 08:00 Creat Clearance w eGFR > 60 (>60) 09/04/18 08:00 Random Glucose 81 mg/dL (74-106) 09/04/18 08:00 Calcium 8.7 mg/dL (8.5-10.1) 09/04/18 08:00 Total Bilirubin 0.5 mg/dL (0.2-1) 09/04/18 08:00 AST 23 U/L (15-37) 09/04/18 08:00 ALT 24 U/L (13-61) 09/04/18 08:00 Alkaline Phosphatase 57 U/L (45-117) 09/04/18 08:00 Total Protein 7.1 g/dl (6.4-8.2) 09/04/18 08:00 Albumin 3.4 g/dl (3.4-5.0) 09/04/18 08:00 Urine Color Yellow 09/03/18 10:00 Urine Appearance Turbid 09/03/18 10:00 Urine pH 5.0 (5.0-8.0) 09/03/18 10:00 Ur Specific [place] 1.031 (1.010-1.035) 09/03/18 10:00 Urine Protein Negative (NEGATIVE) 09/03/18 10:00 Urine Glucose (UA) Negative (NEGATIVE) 09/03/18 10:00 Urine Ketones Negative (NEGATIVE) 09/03/18 10:00 Urine Blood Negative (NEGATIVE) 09/03/18 10:00 Urine Nitrite Negative (NEGATIVE) 09/03/18 10:00 Urine Bilirubin Negative (<2.0 mg/dL) 09/03/18 10:00 Urine Urobilinogen Negative mg/dL (0.2-1.0) 09/03/18 10:00 Ur Leukocyte Esterase Negative (NEGATIVE) 09/03/18 10:00 RPR Titer Nonreactive (NONREACTIVE) 09/04/18 08:00 lab noted Assessment: 09/07/18 12:31 mild withdrawal sx Plan: medically supervised detox
[2018-09-07] MEDS ORDERED: BACLOFEN 10 MG TABLET (FP) PO ONE (13:00)
[2018-09-07] MEDS: THIAMINE HCL 100 MG TABLET (FP) PO SCH ×2 (22:41→22:45)
[2018-09-07] MEDS: MELATONIN 5 MG TABLETS PO PRN (22:45)
[2018-09-08] MEDS ORDERED: METHADONE HCL 5 MG TABLET (FOR DETOX USE ONLY) PO SCH (06:00)
[2018-09-08 10:17] VITALS: BP 137/78; PULSE 70; TEMP 98.1
--- NOTE | 2018-09-08 13:24 | DS ---
[facility] Detox Discharge Summary Admission Date: 09/03/18 Discharge Date: 09/08/18 - History Present History: Alcohol Dependence, Opioid Dependence Additional Comments: 38 years old male admitted on 09/03/18 for alcohol and opiate withdrawal sx completed detox regimen tolerated well denies withdrawal sx alert oriented x 3 no acute distress aftercare [facility] - Physical Exam Results Vital Signs: Vital Signs Temperature 98.1 F 09/08/18 10:16 Pulse Rate 70 09/08/18 10:16 Respiratory Rate 19 09/08/18 10:16 Blood Pressure 137/78 09/08/18 10:16 O2 Sat by Pulse Oximetry (%) Pertinent Admission Physical Exam Findings: alcohol and opiate withdrawal sx Vital Signs Temperature 98.1 F 09/08/18 10:16 Pulse Rate 70 09/08/18 10:16 Respiratory Rate 19 09/08/18 10:16 Blood Pressure 137/78 09/08/18 10:16 O2 Sat by Pulse Oximetry (%) Laboratory Last Values WBC 12.8 K/mm3 (4.0-10.0) H 09/04/18 08:00 RBC 4.49 M/mm3 (4.00-5.60) 09/04/18 08:00 Hgb 13.4 GM/dL (11.7-16.9) 09/04/18 08:00 Hct 40.8 % (35.4-49) 09/04/18 08:00 MCV 90.9 fl (80-96) 09/04/18 08:00 MCH 29.8 pg (25.7-33.7) 09/04/18 08:00 MCHC 32.7 g/dl (32.0-35.9) 09/04/18 08:00 RDW 13.4 % (11.9-15.9) 09/04/18 08:00 Plt Count 251 K/MM3 (134-434) 09/04/18 08:00 MPV 8.6 fl (7.5-11.1) 09/04/18 08:00 Sodium 137 mmol/L (136-145) 09/04/18 08:00 Potassium 3.8 mmol/L (3.5-5.1) 09/04/18 08:00 Chloride 103 mmol/L (98-107) 09/04/18 08:00 Carbon Dioxide 25 mmol/L (21-32) 09/04/18 08:00 Anion Gap 9 MMOL/L (8-16) 09/04/18 08:00 BUN 16 mg/dL (7-18) 09/04/18 08:00 Creatinine 0.7 mg/dL (0.55-1.3) 09/04/18 08:00 Creat Clearance w eGFR > 60 (>60) 09/04/18 08:00 Random Glucose 81 mg/dL (74-106) 09/04/18 08:00 Calcium 8.7 mg/dL (8.5-10.1) 09/04/18 08:00 Total Bilirubin 0.5 mg/dL (0.2-1) 09/04/18 08:00 AST 23 U/L (15-37) 09/04/18 08:00 ALT 24 U/L (13-61) 09/04/18 08:00 Alkaline Phosphatase 57 U/L (45-117) 09/04/18 08:00 Total Protein 7.1 g/dl (6.4-8.2) 09/04/18 08:00 Albumin 3.4 g/dl (3.4-5.0) 09/04/18 08:00 Urine Color Yellow 09/03/18 10:00 Urine Appearance Turbid 09/03/18 10:00 Urine pH 5.0 (5.0-8.0) 09/03/18 10:00 Ur Specific [place] 1.031 (1.010-1.035) 09/03/18 10:00 Urine Protein Negative (NEGATIVE) 09/03/18 10:00 Urine Glucose (UA) Negative (NEGATIVE) 09/03/18 10:00 Urine Ketones Negative (NEGATIVE) 09/03/18 10:00 Urine Blood Negative (NEGATIVE) 09/03/18 10:00 Urine Nitrite Negative (NEGATIVE) 09/03/18 10:00 Urine Bilirubin Negative (<2.0 mg/dL) 09/03/18 10:00 Urine Urobilinogen Negative mg/dL (0.2-1.0) 09/03/18 10:00 Ur Leukocyte Esterase Negative (NEGATIVE) 09/03/18 10:00 RPR Titer Nonreactive (NONREACTIVE) 09/04/18 08:00 lab noted - Treatment Hospital Course: Detox Protocol Followed, Detoxed Safely, Responded well, Discharged Condition Good, Rehab Referral Accepted Patient has Accepted a Rehab Referral to: [facility] - Medication Discharge Medications: Ambulatory Orders NK [No Known Home Medication] 07/26/18 - Diagnosis (1) Alcohol dependence with withdrawal Current Visit: Yes Status: Acute Qualifiers: Complication of substance-induced condition: uncomplicated Qualified Code(s ): F10.230 - Alcohol dependence with withdrawal, uncomplicated (2) Opioid dependence with withdrawal Current Visit: Yes Status: Acute (3) Substance induced mood disorder Current Visit: Yes Status: Suspected (4) Nicotine dependence Current Visit: Yes Status: Chronic Qualifiers: Nicotine product type: cigarettes Substance use status: in withdrawal Qualified Code(s): F17.213 - Nicotine dependence, cigarettes, with withdrawal - AMA Did Patient Leave Against Medical Advice: No
== END 2018-09-08 09:24 | disposition home or self-care (01) | DRG 773 ==
LOC: YASAS 17:39 → Y6N 21:11
PROC: HZ2ZZZZ Detoxification Services for Substance Abuse Treatment (ICD-10-PCS; principal; 2018-09-03)
DX: F11.23 Opioid dependence with withdrawal (principal); F10.230 Alcohol dependence with withdrawal, uncomplicated; F14.20 Cocaine dependence, uncomplicated; F12.20 Cannabis dependence, uncomplicated; F17.213 Nicotine dependence, cigarettes, with withdrawal; F19.24 Other psychoactive substance dependence with psychoactive substance-induced mood disorder; F19.282 Other psychoactive substance dependence with psychoactive substance-induced sleep disorder; Z59.0 Homelessness
CPT/HCPCS: 36415; 80053; 81003; 85027; 86593; 93005; 93010; J0475